=== PATIENT | male | born 1970 | race Caucasian/White ===

== ENCOUNTER 2020-02-06 07:30 | Outpatient (RCR) | payer OTHER, SELFPAY ==
--- NOTE | 2020-01-10 07:26 | HP.OTEVAL_ITS ---
Patient's Visit Information TERESA THORNTON is a 49 year old M, referred to Occupational Therapy by JAYCOB BAÑUELOS, with a diagnosis of left closed fx of distal radius and ulnar. Date of Evaluation: 01/09/20 Occupational Therapist: Fouzia Tubbs, OTR/Chantal, CHT - Subjective This 49 year old male was seen for OT eval with dx of left closed fracture of distal end of left radius and ulnar on November 09, 2019. Pt states he was trimming a tree and on a ladder about 20 feet in the air and the branch he was cutting knocked him of the ladder. pt states he was initial in a cast for 6 weeks but fx moved and pt ended up having ORIF on December 26, 2019. Pt states he works at [employer] or [employer]. 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 Dr. 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 Pt will demo an increase in lateral and tripod pinch by 2# to increase pts independent with opening baggies, containers at PLOF by D/C. Goal:: Pt will demo an increase in wrist ROM equal to unaffected wrist to return pt to PLOF with grooming, dressing and home mtg tasks by D/C. Pt will demo an increase in forearm supination by 60* or greater to increase pts ind. With ADls and IADLS by d/c Goal:: pt will report no pain greater than 1/10 with use of left UE for ADls and IADls - Rehabilitation General Assessment: pt demo with limited ROM and strength due to healing structres. this has effected pts ind. with ADLs and IADls. Pt would benefit from skilled OT services 1-2x week for 6 weeks to return pt to PLOF with ADls and IADls. Today therapist instructed pt on PROM/AROM for wrist and foream. Pt demo understanding and agree to POC. Rehabilitation Potential: Good - Anticipated Interventions A/AAROM/PROM, Strengthening, Edema Control, Scar Care, Desensitization, Modalities, Joint Protection/Energy Conservation - Visit Plan Frequency: 1-2x /Week Duration: 6 Weeks TEXT: Thank you for the opportunity to evaluate your patient. For Medicare and Medicare HMO plans, please review the plan of care and approve it. It will need to be FAXED BACK to us at [phone] for Medicare purposes. Please let me know if there are questions or concerns regarding this plan of care. Physician Signature: Date:
--- NOTE | 2020-01-29 07:31 | OTREVAL_ITS ---
JAYCOB BAÑUELOS, It has been my pleasure to treat JADE THORNTON over the last 4 visits for left closed fx of distal radius and ulnar. Please see the progress note below for an update on the occupational therapy plan of care! Subjective: pt arrives 4 weeks s/p from ORIF of left radius- pt states he feels he has made good gains in ROM. pt reports he is IND with ADLs and IADLs but with work tasks he is having difficulty picking larger objects at work like a door- pt states they weight is about 80# Objective/Function: wrist ROM 60/50. supination is WNL. 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 left lateral pinch 20#. left tripod pinch 20#. left tip pinch 10# Plan Frequency: 1-2x /Week Duration: 6 Weeks Plan: pt making good gains with ROM- will cont with ROM ex. may initiate light strengthening at 6 weeks Goals - Goals Patient Goals: Regain Mobility, Regain Strength, Return to Work, Use Hand/Wrist/Arm Normally Again Goal:: PT will demo an increase in clamp forklift operator strength by 20# to increase independent with basic occupations of daily living to return pt to PLOF by D/C. Pt will demo an increase in lateral and tripod pinch by 2# to increase pts independent with opening baggies, containers at PLOF by D/C. Goal:: Pt will demo an increase in wrist ROM equal to unaffected wrist to return pt to PLOF with grooming, dressing and home mtg tasks by D/C. Pt will demo an increase in forearm supination by 60* or greater to increase pts ind. With ADls and IADLS by d/c Goal:: pt will report no pain greater than 1/10 with use of left UE for ADls and IADls Anticipated Interventions Anticipated Interventions: A/AAROM/PROM, Strengthening, Edema Control, Scar Care, Desensitization, Modalities, Joint Protection/Energy Conservation Please do not hesitate to contact me at [phone] by phone or if you have questions or concerns regarding this new plan of care! Sincerely, Fouzia Tubbs, OTR/L, CHT
--- NOTE | 2020-02-06 07:57 | HP.OTDCSUM_ITS ---
It has been my pleasure to treat JADE THORNTON under orders from JAYCOB BAÑUELOS, for the diagnosis of left closed fx of distal radius and ulnar for a total of 6 visit(s). Please see the following information for a summary of their discharge status. 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 Lat pinch 21. Tripod pinch 22. Tip to Tip 13#. Wrist flex 75/55. pt demo with ROM and strength WFL to perform ADLS and IADls and can be D/c with HEP to cont. performing PRE/ stretching Patient Goals: Regain Mobility, Regain Strength, Return to Work, Use Hand/Wrist/Arm Normally Again Goal:: PT will demo an increase in hammer mill operator strength by 20# to increase independent with basic occupations of daily living to return pt to PLOF by D/C. Pt will demo an increase in lateral and tripod pinch by 2# to increase pts independent with opening baggies, containers at PLOF by D/C. Goal:: Pt will demo an increase in wrist ROM equal to unaffected wrist to return pt to PLOF with grooming, dressing and home mtg tasks by D/C. Pt will demo an increase in forearm supination by 60* or greater to increase pts ind. With ADls and IADLS by d/c Goal:: pt will report no pain greater than 1/10 with use of left UE for ADls and IADls Plan: D/C Discharge Comments: pt has met OT goals at this time and has been d/c. please see above for details on ROM and strength If there are questions or concerns regarding this patient's occupational therapy, please fell free to call me at [phone]. Thank you for the referral of this patient. Sincerely, Fouzia Tubbs, OTR/L, CHT
== END 2020-02-06 19:00 | disposition home or self-care (01) ==
LOC: OT 07:30
DX: S52.502D Unspecified fracture of the lower end of left radius, subsequent encounter for closed fracture with routine healing (principal); S52.602D Unspecified fracture of lower end of left ulna, subsequent encounter for closed fracture with routine healing
CPT/HCPCS: 97110; 97166; 97530